=== PATIENT | male | born 1940 | race African-American/Black ===

== ENCOUNTER 2017-05-17 07:22 | Emergency (ER) | payer MEDICARE, OTHER ==
[~2017-05-17] VITALS: Ht 175.3 cm; Wt 104.0 kg
[2017-05-17] MEDS ORDERED: WARF1TAB46 PO (07:34)
[2017-05-17 08:47] LABS: BASOPHILS % 0.6 % (0.0-2.0); EOSINOPHILS % 0.7 % (0.0-5.0); HEMATOCRIT. 28.7 % (42.0-52.0); HEMOGLOBIN. 9.4 g/dL (14.0-18.0); LYMPHOCYTES % 13.1 % (20.0-50.0); MEAN CORPUSCULAR HEMOGLOBIN 31.9 pg (28.0-32.0); MEAN PLATELET VOLUME 8.7 fl (7.4-10.4); NEUTROPHILS % 75.6 % (40.0-76.0); PLATELET 170 x1000/uL (130-400); RED BLOOD CELL COUNT 2.96 mill/uL (4.7-6.1); RED CELL DISTRIBUTION WIDTH 18.1 % (11.6-14.6)
[2017-05-17 08:54] LABS: PROTHROMBIN TIME 20.6 sec (9.4-11.6)
[2017-05-17 12:42] VITALS: BP 110/67
== END 2017-05-17 12:45 | disposition home or self-care (01) ==
LOC: ER 08:09
DX: R04.0 Epistaxis (principal); J44.9 Chronic obstructive pulmonary disease, unspecified; I10 Essential (primary) hypertension; Z86.718 Personal history of other venous thrombosis and embolism; Z79.01 Long term (current) use of anticoagulants
CPT/HCPCS: 36415; 80048; 85025; 85610; 99284